=== PATIENT | female | born 1955 | race Caucasian/White ===

== ENCOUNTER 2022-02-22 10:12 | Emergency (ER) | payer OTHER ==
[~2022-02-22] VITALS: Ht 149.9 cm; Wt 90.7 kg
[2022-02-22 10:15] VITALS: BP_SYST 132
--- NOTE | 2022-02-22 10:45 | NUR ---
Patient to ER bed 1 to gown for evaluation. Side rails up. Report given to Dai GUZMAN.
--- NOTE | 2022-02-22 10:46 | NUR ---
Assumed care of patient ERICKA c/o allergic reaction- hives covering her arms, backside, chest. Patient states gave her two benadryl (dose unk) at home. Hives began to recede. Patient states she does not believe she used anything that would trigger her reaction. States she has allergies to cephlasporin, neosporin. Patient denies SOB and appears in no acute distress. Gil continue to monitor patient and interven as ordered.
[2022-02-22] MEDS ORDERED: FAMOTIDINE 20 MG TABLET PO ONE (11:00)
[2022-02-22] MEDS ORDERED: predniSONE 20 MG TABLET PO ONE (11:15)
[2022-02-22 11:28] LABS: BASOPHILS % (AUTO) 0.3 % (0.0-2.0); EOSINOPHILS % (AUTO) 0.2 % (0.0-4.0); HEMATOCRIT 48.9 % (36-48); LYMPHOCYTES # (AUTO) 1.9 K/uL (1.0-5.5); LYMPHOCYTES % (AUTO) 14.7 % (20.5-51.5); MEAN CORPUSCULAR HEMOGLOBIN 29 pg (27-31); MEAN CORPUSCULAR HGB CONC 33 % (32-36); MEAN CORPUSCULAR VOLUME 88 fL (79.0-98.0); MONOCYTES # (AUTO) 0.6 K/uL (0.0-1.0); MONOCYTES % (AUTO) 5.1 % (1.7-9.3); NEUTROPHILS # (AUTO) 10.1 K/uL (1.8-7.7); NEUTROPHILS % (AUTO) 79.7 % (40.0-70.0); PLATELET COUNT (AUTO) 301 K/uL (130-430); RED BLOOD CELL COUNT(AUTO) 5.53 MIL/uL (4.2-6.2); RED CELL DISTRIBUTION WIDTH 15.4 % (9.0-15.0); WHITE BLOOD COUNT (AUTO) 12.6 K/uL (4.8-10.8)
[2022-02-22 11:45] LABS: ANION GAP 10 (5-15); CALCIUM 8.4 mg/dL (8.4-11.0); CHLORIDE 100 mmol/L (98-107); CREATININE 1.19 mg/dL (0.55-1.30); GLUCOSE 298 mg/dL (70-99); SODIUM SERUM 133 mmol/L (136-145); UREA NITROGEN, BLOOD 22 mg/dL (8-21)
[2022-02-22] MEDS ORDERED: NACL 0.9% 1,000 ML IV ONE (11:45)
[2022-02-22 11:51] LABS: GFR AFRICAN AMERICAN 58 mL/min (>90)
[2022-02-22 11:53] LABS: ALANINE AMINOTRANSFERASE 28 U/L (12-78); ALBUMIN 3.2 g/dL (3.4-4.8); ASPARTATE AMINOTRANSFERASE 24 U/L (10-37); TOTAL BILIRUBIN 0.7 mg/dL (0.0-1.0)
--- NOTE | 2022-02-22 12:03 | NUR ---
ARYAN Washburn at bedside examining patient.
--- NOTE | 2022-02-22 12:40 | NUR ---
# 22 gauge angiocath placed to RAC. Use of asceptic technique. Opsite placed over site. Blood return noted. Flushed with 10 cc of normal saline. No evidence of infiltration noted. Patient tolerated well.
[2022-02-22] MEDS ORDERED: predniSONE 20 MG TABLET ONE (14:05)
--- NOTE | 2022-02-22 14:21 | NUR ---
Results of orthostatic hypotension test showed patients BP at 117/69 supine and 100/52 standing. MD notified.
[2022-02-22] MEDS ORDERED: NS 500 ML IV ONE (14:45)
[2022-02-22] MEDS ORDERED: DIPH25CA83 PO (14:50)
[2022-02-22] MEDS ORDERED: FAMO40TA71 PO (14:50)
[2022-02-22] MEDS ORDERED: PRED20TA PO (14:50)
[2022-02-22] MEDS ORDERED: EPIN0.3P3 IM (14:52)
[2022-02-22 15:28] VITALS: BP_SYST 132
--- NOTE | 2022-02-22 15:29 | NUR ---
Patient given written and verbal discharge instructions and verbalizes understanding. ER Dr. Maddison MCCORD discussed with patient the results and treatment provided. Patient in stable condition. ID arm band removed. IV catheter removed intact and dressing applied, no active bleeding. Rx of epi-pen, diphenhydramine, famotidine, prednisone given. Patient educated on pain management and to follow up with PMD. Opportunity for questions provided and answered. Medication side effect fact sheet provided.
== END 2022-02-22 15:26 | disposition home or self-care (01) ==
LOC: SED 10:12
DX: T78.2XXA Anaphylactic shock, unspecified, initial encounter (principal); R73.9 Hyperglycemia, unspecified; Z88.8 Allergy status to other drugs, medicaments and biological substances; Z79.899 Other long term (current) drug therapy
CPT/HCPCS: 99284; 96360; 80053; 82962; 83880; 85025; 84484; 36415; 93005; J7512; J7030